=== PATIENT | female | born 1975 | race Caucasian/White ===

== ENCOUNTER → 2017-08-05 | Outpatient (CLI) | payer OTHER ==
--- NOTE | 2017-08-05 15:11 | DIAGNOSTIC IMAGING REPORT ---
LEFT BACK ULTRASOUND HISTORY: LUMP ON BACK. COMPARISON: None. FINDINGS: Targeted sonography of the left lower back at site of palpable abnormality demonstrated no mass, fluid collection or other sonographic abnormality. IMPRESSION: No sonographic abnormality within the left lower back at site of palpable abnormality. Electronically signed by: Saad Webb M.D. 08/05/2017 3:10 PM Dictated Date/Time: 08/05/2017 2:44 PM
== END | disposition home or self-care (01) ==
LOC: C.ULTR 14:11
PROVIDERS: ATTEND Family Medicine
DX: R22.2 Localized swelling, mass and lump, trunk (principal)

== ENCOUNTER → 2017-08-31 | Outpatient (CLI) | payer OTHER | END | disposition home or self-care (01) | LOC: C.PAPS 11:17 | PROVIDERS: ATTEND Family Medicine | DX: Z12.4 Encounter for screening for malignant neoplasm of cervix (principal) ==

== ENCOUNTER → 2017-09-10 | Outpatient (CLI) | payer OTHER ==
--- NOTE | 2017-09-11 07:22 | MAMMOGRAPHY REPORT ---
BILATERAL DIGITAL DIAGNOSTIC MAMMOGRAM TOMOSYNTHESIS WITH CAD AND TARGETED LEFT ULTRASOUND: 09/10/2017 CLINICAL HISTORY: The patient reports a palpable thickening/lump in the left breast for at least 3 ye ars, which has not noticeably changed over that time. TECHNIQUE: Breast tomosynthesis in addition to standard 2D mammography was performed. Current study was also evaluated with a Computer Aided Detection (CAD) system. Bilateral CC and MLO 2D and tomosyn thesis images were obtained. COMPARISON: Comparison is made to exam dated: 04/09/2015 mammogram - [facility]. BREAST COMPOSITION: The tissue of both breasts is heterogeneously dense, which may obscure small mas ses. FINDINGS: A triangle marker arthur the site of the palpable lump in the left 12:00 breast. No suspici ous masses or other suspicious mammographic abnormalities are seen within this region. The remainder of both breasts are stable compared to prior exams, without suspicious masses, calcifications, or ar eas of architectural distortion noted. An asymmetry is seen within the left medial breast on the cc view, which has the appearance of overlapping fibroglandular tissue on the tomosynthesis images and d oes not appear significantly changed compared to the 2015 exam however, ultrasound was performed of t his region. Targeted ultrasound was performed of the area of the palpable lump/thickening pointed out by the sonia ent, and the left breast at 12:00 approximately 6 cm from the nipple. Sonographically normal tissue is seen in this region, without evidence of a mass or other suspicious sonographic abnormality. A fe w small anechoic benign cysts were seen during the exam, including a 3 mm simple cyst in the left 11: 00 breast, 6 cm from the nipple. Ultrasound was also performed of the left medial breast in the rani on of the mammographic asymmetry, which shows no suspicious masses or other suspicious sonographic ab normalities. Given the lack of a sonographic correlate and given the stability to 2015, the asymmetr y is considered benign and felt to represent normal fibroglandular tissue. IMPRESSION: ACR BI-RADS CATEGORY 2: BENIGN, TARGETED ULTRASOUND ACR BI-RADS CATEGORY 2: BENIGN No suspicious mammographic or sonographic abnormality at the site of the palpable lump/thickening in the left breast pointed out by the patient. There is no mammographic or targeted sonographic evidenc e of malignancy. Recommend clinical follow-up for the left breast lump, and recommend routine bilate ral screening mammograms in one year. The patient has been verbally notified of the results. Approximately 10% of breast cancers are not detected with mammography. A negative mammographic report should not delay biopsy if a clinically suggestive mass is present. Tara Watkins M.D. ah/:09/10/2017 11:43:22 Cold Header: Carrie ANNA(Andre)(Murray), [facility] letter sent: Normal 1/2 BI-RADS Code: ACR BI-RADS Category 2: Benign Ultrasound BI-RADS: ACR BI-RADS Category 2: Benign
== END | disposition home or self-care (01) ==
LOC: C.MAMM 09:37
PROVIDERS: ATTEND Family Medicine
DX: Z12.31 Encounter for screening mammogram for malignant neoplasm of breast (principal); N63.20 Unspecified lump in the left breast, unspecified quadrant